=== PATIENT | male | born 1995 | race Asian ===

== ENCOUNTER 2020-05-03 11:58 | Emergency (ER) | payer MEDICAID ==
[~2020-05-03] VITALS: Ht 172.7 cm; Wt 82.0 kg
[2020-05-03 12:06] VITALS: BP 151/87
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
[2020-05-03] MEDS ORDERED: XANAX (12:16)
[2020-05-03] MEDS ORDERED: ARIP5TAB13 PO (12:16)
[2020-05-03 12:45] LABS: AMPHETAMINE SCREEN, URINE Negative (Negative); BARBITURATE SCREEN, URINE Negative (Negative); BENZODIAZEPINE SCREEN, URINE Positive (Negative); CANNABINOID SCREEN, URINE Negative (Negative); COCAINE SCREEN, URINE Negative (Negative); METHADONE SCREEN, URINE Negative (Negative); OPIATE SCREEN, URINE Negative (Negative)
[2020-05-03 12:54] LABS: BASOPHILS # (AUTO) 0.03 x10^3/uL (0-0.1); BASOPHILS % (AUTO) 0 % (0-1); EOSINOPHILS # (AUTO) 0.27 x10^3/uL (0-0.4); EOSINOPHILS % (AUTO) 4 % (1-7); LYMPHOCYTES # (AUTO) 1.61 x10^3/uL (1-3.4); LYMPHOCYTES % (AUTO) 22 % (22-44); MD NO; MEAN CORPUSCULAR HEMOGLOBIN 29.2 pg (27.5-34.5); MEAN CORPUSCULAR HGB CONC 33.3 g/dL (33.2-36.2); MEAN CORPUSCULAR VOLUME 87.9 fL (81-97); MEAN PLATELET VOLUME 7.8 fL (7.4-10.4); MONOCYTES # (AUTO) 0.58 x10^3/uL (0.2-0.8); MONOCYTES % (AUTO) 8 % (2-9); NEUTROPHILS # (AUTO) 4.77 x10^3/uL (1.8-6.8); NEUTROPHILS % (AUTO) 66 % (42-75); PLATELET COUNT 337 x10^3/uL (130-400); RED BLOOD COUNT 5.54 x10^6/uL (4.38-5.82); RED CELL DISTRIBUTION WIDTH 12.9 % (9.4-14.8)
[2020-05-03 12:58] LABS: ALANINE AMINOTRANSFERASE 73 U/L (12-78); ANION GAP 7 mmol/L (5-15); CHLORIDE 108 mmol/L (98-107); CREATININE 1.09 mg/dL (0.7-1.3); SALICYLATE LEVEL 2.8 mg/dL (2.8-20.0)
[2020-05-03 13:03] LABS: ALKALINE PHOSPHATASE 72 U/L (45-117); BILIRUBIN,TOTAL 0.3 mg/dL (0.2-1.0); TOTAL PROTEIN 8.5 g/dL (6.4-8.2)
--- NOTE | 2020-05-03 13:08 | NUR ---
SHERITA APPIAH APRN IN ROOM W/ PT.
--- NOTE | 2020-05-03 13:25 | NUR ---
ED SAFETY DIET TRAY ORDERED.
--- NOTE | 2020-05-03 13:49 | NUR ---
LUNCH TRAY DELIVERED TO PT.
--- NOTE | 2020-05-03 14:03 | NUR ---
REPORT GIVEN TO STEVE NAIDU. PT TRANSPORTED TO ROOM 3.
--- NOTE | 2020-05-03 14:08 | NUR ---
REC REPORT PT TO ROOM 3 FAMILY AT THE BS
[2020-05-03] MEDS ORDERED: LORazepam 2 MG/ML, 1ML IM PRN (14:30)
[2020-05-03] MEDS ORDERED: DIPHENHYDRAMINE 50 MG CAPSULE PO PRN (14:30)
[2020-05-03] MEDS ORDERED: DIPHENHYDRAMINE 50 MG/ML, 1ML IM PRN (14:30)
[2020-05-03] MEDS ORDERED: HALOPERIDOL 5 MG/ML IM PRN (14:30)
[2020-05-03] MEDS ORDERED: NICOTINE 21 MG/24 HR PATCH.TD24 TD PRN (14:30)
[2020-05-03] MEDS ORDERED: HALOPERIDOL 5 MG TABLET PO PRN (14:30)
[2020-05-03] MEDS ORDERED: TRAZODONE 50MG TABLET PO PRN (14:30)
--- NOTE | 2020-05-03 14:55 | NUR ---
PT REFUSING TO STAY IN HIS ROOM CONTINUES TO STAND OUT IN THE CHUN WAS ADVISED ON MULTI ATTEMPTS TO REMIND PT HE COULD NOT CONTINUE TO BE OUT OF ROOM LOOKING UP AND DOWN THE CHUN AND WALKING IN THE CHUN SECURITY WAS INVOLVED TO KEEP HIM IN THE ROOM PT AGREED TO STAY IN THE ROOM BEFORE SECURITY WAS OUT OF THE DEPT PT WAS AGAIN BACK IN THE CHUN AT THIS TIME DOOR TO THE ROOM IS CLOSED AND SITTER ABLE TO SEE THE PT TROUGH THE GLASS WALL AND GLASS DOOR
--- NOTE | 2020-05-03 15:10 | NUR ---
REC INFO FROM FAMILY THAT PT HAS BEE ACCEPTED TO [facility] WITH THE INTENSIVE PROGRAM AND THAT THEY HAVE A BED THIS INFO GIVEN TO THROUGH PUT
--- NOTE | 2020-05-03 15:33 | NUR ---
PT DECLINES ALL MEDS AT THIS TIME
--- NOTE | 2020-05-03 17:49 | NUR ---
report to [facility] THEY ACCEPT SEND PT
--- NOTE | 2020-05-03 18:55 | NUR ---
INITAL PT RESPONSE TO TRANSPORT TO [facility] WAS "I AM NOT GOING " DUTCH HAD LONG CONVERSATION W THE PT THAT FINALY AGREED TO THE TRANSPORT
[2020-05-03] MEDS ORDERED: ARIPIPRAZOLE 10 MG TABLET PO SCH (21:00)
== END 2020-05-03 18:59 ==
LOC: ED 14:11
DX: S60.221A Contusion of right hand, initial encounter (principal); F23 Brief psychotic disorder; F22 Delusional disorders; W22.8XXA Striking against or struck by other objects, initial encounter; Y93.89 Activity, other specified; Y92.89 Other specified places as the place of occurrence of the external cause; Y99.8 Other external cause status
CPT/HCPCS: 36415; 80053; 80307; 84443; 85025; 99285

== ENCOUNTER 2020-05-03 22:41 | Emergency (ER) | payer MEDICAID ==
[~2020-05-03] VITALS: Ht 165.1 cm; Wt 90.0 kg
[~2020-05-03 22:41] MED LIST: ARIP5TAB13 PO; XANAX
--- NOTE | 2020-05-03 23:19 | NUR ---
BELONGINGS PLACED IN LOCKED PSYCH LOCKER. PATIENT'S SHOES REMOVED, POCKETS EMPTIED.
--- NOTE | 2020-05-03 23:36 | NUR ---
BEDSIDE REPORT FROM JUNITO NAIDU, PT CARE TRANSFERRED AT THIS TIME. SITTER IN HALLWAY, PT NAD, RESP WNL, SKIN COLOR WNL WARM AND DRY, GROSS NEURO INTACT, MAEx4, FCS no SOB, WCTM. PT TO BE TRANSFERRED TO [facility].
--- NOTE | 2020-05-03 23:46 | NUR ---
REPORT WAS CALLED TO EVANGELISTA MENDES RECIEVED REPORT. AWARE OF PATIENT'S CURRENT STATUS, VITAL SIGNS, AND TRANSFER BACK TO FACILITY FOR MENTAL HEALTH ADMISSION.
--- NOTE | 2020-05-03 23:47 | NUR ---
AWAITING ORIGINAL LEGAL HOLD PRIOR TO BEING ABLE TO TRANSFER PT BACK TO [facility]
--- NOTE | 2020-05-04 00:06 | NUR ---
CALLED [facility] AND SPOKE TO KAYCE. SHE STATES SYSTEM IS DOWN FOR ANOTHER 20 MINUTES AND REQUESTS WE CALL BACK THEN FOR TRANSPORT AUTHORIZATION.
--- NOTE | 2020-05-04 00:24 | NUR ---
Note denver in [facility] - 05/04/20 at 0025 by [email or web address] CALLED [facility] AND SPOKE TO BHUPINDER. SHE STATES SHE WAS TOLD BY OUR STAFF THEY DID NOT NEED TO BRING THE ORIGINAL LEGAL HOLD. THIS RN INFORMED THEM FOR LEGALITY REASONS THEY DO NEED TO BRING THE ORIGINAL HOLD. SHE STATES SHE WILL HAVE SOMEONE BRING IT OVER [facility].
--- NOTE | 2020-05-04 00:25 | NUR ---
CALLED [facility] AND SPOKE TO BHUPINDER. SHE STATES SHE WAS TOLD BY OUR STAFF THEY DID NOT NEED TO BRING THE ORIGINAL LEGAL HOLD. THIS RN INFORMED THEM FOR LEGALITY REASONS THEY DO NEED TO BRING THE ORIGINAL HOLD. SHE STATES SHE WILL HAVE SOMEONE BRING IT OVER [facility].
--- NOTE | 2020-05-04 00:36 | NUR ---
CALLED [facility] SPOKE TO LEISA. TRANSPORT ARRANGED FOR TRANSPORT TO [facility]. HOWEVER STILL WAITING FOR ORIGINAL LEGAL HOLD
--- NOTE | 2020-05-04 00:57 | NUR ---
sitter within line of sight, pt resting in gurney, eyes closed, RESP heard and WNL, NAD, skin color WNL warm and dry, pt appears comfortable, WCTM. waiting to transfer back to [facility]
--- NOTE | 2020-05-04 01:04 | NUR ---
SPOKE TO BHUPINDER AT [facility] WHOM STATES THE HOLD IS ON THE WAY AND SHOULD BE HERE WITHIN 10 MINUTES.
--- NOTE | 2020-05-04 01:33 | NUR ---
LEGAL HOLD ARRIVED AT THIS TIME
--- NOTE | 2020-05-04 01:35 | NUR ---
CONTACTED [facility]. ETA [id number]
[2020-05-04 01:48] VITALS: BP 117/79
--- NOTE | 2020-05-04 01:50 | NUR ---
pt resting in gurney, VSS, NAD, ABC intact, sitter in line of sight, skin color WNL warm and dry. WCTM. waiting for RESMA transfer back to [facility]
== END 2020-05-04 02:30 ==
LOC: ED 23:20
DX: F23 Brief psychotic disorder (principal); F17.290 Nicotine dependence, other tobacco product, uncomplicated
CPT/HCPCS: 99285; 99406

== ENCOUNTER 2021-04-03 02:25 | Emergency (ER) | payer MEDICAID ==
[~2021-04-03] VITALS: Ht 175.3 cm; Wt 75.0 kg
[2021-04-03] MEDS ORDERED: DIPHENHYDRAMINE 50 MG/ML, 1ML ONE (02:27)
[2021-04-03] MEDS ORDERED: HALOPERIDOL 5 MG/ML ONE (02:27)
[2021-04-03] MEDS ORDERED: LORazepam 2 MG/ML, 1ML ONE (02:28)
[2021-04-03] MEDS ORDERED: HALOPERIDOL 5 MG/ML IM ONE (02:30)
[2021-04-03] MEDS ORDERED: DIPHENHYDRAMINE 50 MG/ML, 1ML IM ONE (02:30)
[2021-04-03] MEDS ORDERED: LORazepam 2 MG/ML, 1ML IM ONE (02:30)
--- NOTE | 2021-04-03 02:49 | NUR ---
Pt acutely manic, pressured speach, combative, swinging arms at police in field and at family, bipolar not on meds. Responding to internal stimuli. Medicated to r/l thigh IM b52. Leather restraints applied by security, on cont pulse ox. Room stimuli decreased. Lab able to draw blood. Sitter outside of room. L2k by MAGALY.
[2021-04-03 02:55] LABS: BASOPHILS % (AUTO) 0 % (0-1); EOSINOPHILS % (AUTO) 1 % (1-7); LYMPHOCYTES % (AUTO) 21 % (22-44); MD NO; MEAN CORPUSCULAR HEMOGLOBIN 28.4 pg (27.5-34.5); MEAN CORPUSCULAR HGB CONC 33.6 g/dL (33.2-36.2); MEAN PLATELET VOLUME 7.8 fL (7.4-10.4); MONOCYTES % (AUTO) 8 % (2-9); NEUTROPHILS % (AUTO) 70 % (42-75); PLATELET COUNT 388 x10^3/uL (130-400); RED BLOOD COUNT 5.89 x10^6/uL (4.38-5.82); RED CELL DISTRIBUTION WIDTH 12.7 % (9.4-14.8)
[2021-04-03 03:05] LABS: ALANINE AMINOTRANSFERASE 111 U/L (12-78); ALBUMIN 4.6 g/dL (3.4-5.0); ANION GAP 14 mmol/L (5-15); CALCIUM 9.3 mg/dL (8.5-10.1); CHLORIDE 112 mmol/L (98-107); CREATININE 1.26 mg/dL (0.7-1.3); SALICYLATE LEVEL 3.8 mg/dL (2.8-20.0)
[2021-04-03 03:08] LABS: ALKALINE PHOSPHATASE 82 U/L (45-117); BILIRUBIN,TOTAL 0.6 mg/dL (0.2-1.0); TOTAL PROTEIN 9.1 g/dL (6.4-8.2)
--- NOTE | 2021-04-03 03:30 | NUR ---
PT TRYING TO GET OUT OF HIS RESTRAINTS, REMAINS ON 4 POINT LIMB RESTRAINTS AND CHARTING ON PAPER NEXT TO BED. THERE IS A SITTER OUTSIDE OF ROOM, AND EYES ON PT. PT PROVIDED WITH WATER ON REQUEST AND EXPRESSED THANKS. PT ADVISED TO TRY AND SLEEP AND THAT HE IS IN A SAFE PLACE TO DO THAT. PT CONTINUES HAVING RANDOM WORDS AND TALKING TO HIMSELF AND HEARING VOICES.
[2021-04-03] MEDS ORDERED: LORazepam 2 MG/ML, 1ML IM PRN (04:00)
--- NOTE | 2021-04-03 04:13 | NUR ---
ON PT ASSESMENT HE IS NOW SLEEPING IN BED, ON O2 SAT PROBE AND BP CUFF. REMAINS ON 4 POINT LIMB RESTRAINT, AND CHARTING REMAINS ON PAPER. PT HAS GOOD CIRCULATION X4 EXTREMITIES, ERGONOMICS CONSULTANT <2SECONDS. WILL RE ASSES FOR REMOVAL OF LIMB RESTRAINTS.
--- NOTE | 2021-04-03 04:41 | NUR ---
PT HAS HAD TWO LIMB RESTRAINTS REMOVED. LEFT ARM AND RIGHT LEG REMOVED. REMAINING LIMB RESTRAINTS ARE ON RIGHT ARM AND LEFT LEG. SECURITY STAFF REMOVED THE TWO LEATHER RESTRAINTS. PAPER CHARTING ADJUSTED TO SHOW THE REMOVAL OF 2 LIMB RESTRAINTS. PT REMAINS ON O2 SAT PROBE, AND BP CUFF. NO ACUTE DISTRESS. REMAINS ASLEEP AT THIS TIME, AND AIRWAY INTACT, AND GOOD AERATION AND OXYGENATION. SITTER SITTING OUTSIDE OF ROOM WITH EYES ON PT.
--- NOTE | 2021-04-03 05:45 | NUR ---
PTS FINAL TWO LIMB RESTRAINTS WERE REMOVED WITH ASSISTANCE FROM SECURITY STAFF. PT REMAINS ASLEEP AT THIS TIME ON O2 SAT PROBE AND BP CUFF. SITTER REMAINS OUTSIDE OF ROOM, EYES ON PT, AND PT REMAINS ON L2K HOLD.
--- NOTE | 2021-04-03 05:45 | NUR ---
PTS MORNING BREAKFAST TRAY OF FOOD ORDERED.
--- NOTE | 2021-04-03 06:55 | NUR ---
REPORT AND CARE TO JENY NAIDU.
--- NOTE | 2021-04-03 07:09 | NUR ---
REPORT RECEIVED AT BEDSIDE FROM RN JADE, PT SLEEPING, RESPS EVEN AND UNLABORED, SPO2 MONITORING IN PLACE. SITTER MONITORING FROM [facility] FOR SAFETY.
--- NOTE | 2021-04-03 08:00 | NUR ---
upon initial assessment, pt noted to still be in own clothing. pt awakened, changed into gown. clothing (shirt, pants, sweatshirt) removed and placed in labeled bag, along with pt's necklace and pendant and ugg slippers. all belongings placed in locked cabinet, pt aware. no other belongings found with pt. pt is drowsy, but tremulous when awakened. pt oriented to self and city, reoriented to situation, time, place. neuro intact, pt denies pain. pt on hospital bed, all monitors in place, nsr rate 80s on assembler deck and hull with no ectopy. room secured. sitter monitoring from [facility] for safety.
--- NOTE | 2021-04-03 08:05 | NUR ---
late entry for 804: psych reassessment completed, pt denies SI, pt unaware of why he is in ED. pt reoriented and updated with POC.
[2021-04-03] MEDS ORDERED: ARIPIPRAZOLE 10 MG TABLET PO ONE (08:30)
[2021-04-03] MEDS ORDERED: LORazepam 1MG TABLET PO ONE (08:30)
--- NOTE | 2021-04-03 08:30 | NUR ---
EDMD VanBibber at bedside to assess pt, pt is arouseable to painful stimuli only, resps even and unlabored. nsr on cardiac cath lab radiology technologist at rate 80s with no ectopy. MD informed pt was very tremulous upon awakening with previous assessment, tachycardic rate 130 when standing to change out of clothes this am, hr returning quickly to 80s when resting. bp, spo2 and cardiac monitors in place. EDMD instructed RN to hold abilify and ativan until pt is awake and alert. unable to complete med rec at this time as pt only mumbles in response to questions. MD to reassess when pt awake and alert. room secure, sitter monitoring from [facility] for safety.
--- NOTE | 2021-04-03 09:31 | NUR ---
pt sleeping, resps even and unlabored, nsr on teletypesetter monitor with no ectopy. vss. room remains secure, sitter monitoring from bedside for safety.
--- NOTE | 2021-04-03 10:18 | NUR ---
PT SLEEPING, RESPS EVEN AND UNLABORED. ALL MONITORS IN PLACE. VSS. NSR ON COMBER FIXER. URINAL AT BEDSIDE FOR UDS WHEN ABLE.
--- NOTE | 2021-04-03 11:30 | NUR ---
pt awoke spontaneously, asked for meal tray. SI meal tray provided. pt consumed 75% without difficulty. pt then fell back asleep, resps even and unlabored. room secure. sitter monitoring from [facility] for safety.
--- NOTE | 2021-04-03 12:30 | NUR ---
PT VOIDED APPROX 800ML NEHEMIAH URINE, UDS SENT TO LAB.
[2021-04-03 12:58] LABS: AMPHETAMINE SCREEN, URINE Negative (Negative); BARBITURATE SCREEN, URINE Negative (Negative); BENZODIAZEPINE SCREEN, URINE Negative (Negative); CANNABINOID SCREEN, URINE Negative (Negative); COCAINE SCREEN, URINE Negative (Negative); METHADONE SCREEN, URINE Negative (Negative); OPIATE SCREEN, URINE Negative (Negative)
--- NOTE | 2021-04-03 13:15 | NUR ---
REPORT GIVEN TO EVANGELISTA MARES AT BEDSIDE WHO IS ASSUMING CARE. PT SLEEPING, RESPS EVEN AND UNLABORED, NADN. ROOM SECURE, SITTER MONITORING FROM [facility] FOR SAFETY.
--- NOTE | 2021-04-03 13:18 | NUR ---
PT RESTING IN RHURON WITH EYES CLOSED, NADN AT THIS TIME, WCTM. SITTER WITHIN DIRECT LINE OF SIGHT FOR SAFETY.
[2021-04-03 13:40] VITALS: BP 125/83
--- NOTE | 2021-04-03 13:46 | NUR ---
PACKET FAXED TO [facility], [facility] AND [facility]
[2021-04-03] MEDS ORDERED: BENZTROPINE 1 MG TABLET PO SCH (16:00)
--- NOTE | 2021-04-03 17:19 | NUR ---
PER RAMIRO, SAS PROGRAMMER ANALYST HOLD MEDICATIONS UNTIL PT IS AWAKE. PT STILL SLEEPING AT THIS TIME.
--- NOTE | 2021-04-03 17:41 | NUR ---
PT CURRENTLY REFUSING MEDICATIONS. ROBB RUBIO AWARE.
[2021-04-03] MEDS ORDERED: ARIPIPRAZOLE 10 MG TABLET ONE (18:38)
[2021-04-03] MEDS ORDERED: BENZTROPINE 1 MG TABLET ONE (18:39)
--- NOTE | 2021-04-03 18:44 | NUR ---
ROBB RUBIO AT BEDSIDE. PT WILLING TO TAKE ABILIFY BUT REFUSING COGENTIN AT THIS TIME.
--- NOTE | 2021-04-03 18:45 | NUR ---
REPORT GIVEN TO EVANGELISTA MANDUJANO.
--- NOTE | 2021-04-03 18:48 | NUR ---
report from Shaista torresmetal patternmaker apprentice of care
--- NOTE | 2021-04-03 19:36 | NUR ---
REPORT TO [facility] WILL CALL BACK WITH ANSWER
--- NOTE | 2021-04-03 19:43 | NUR ---
REPORT TO ALICIA AT [facility], DR REIS ACCEPTING
--- NOTE | 2021-04-03 20:34 | NUR ---
MIHAELA CALLED TO ARRANGE TRANSPORTATION TO [facility] FOR PT. SPOKE WITH EDWAR. TRANSPORTATION HAS BEEN ARRANGED FOR [facility]. PCS FAXED TO [facility]
--- NOTE | 2021-04-03 20:39 | NUR ---
PT RESTING ON [employer] AT THIS TIME SITTER IN SIGHT. AWAITING TRANSPORT TO [facility].
[2021-04-03] MEDS ORDERED: TRAZODONE 100MG TABLET PO PRN (21:00)
[2021-04-03] MEDS ORDERED: ARIPIPRAZOLE 10 MG TABLET PO SCH (21:00)
[2021-04-04] MEDS ORDERED: ARIPIPRAZOLE 10 MG TABLET PO SCH (09:00)
== END 2021-04-03 21:24 ==
LOC: ED 03:36
DX: F31.2 Bipolar disorder, current episode manic severe with psychotic features (principal); F17.200 Nicotine dependence, unspecified, uncomplicated; Z88.8 Allergy status to other drugs, medicaments and biological substances
CPT/HCPCS: 36415; 80053; 80299; 80307; 80320; 80329; 85025; 96372; 99285; J1200; J1630; J2060; G0480